=== PATIENT | male | born 1985 | race American Indian/Alaskan Native ===

== ENCOUNTER 2018-02-02 16:39 | Emergency (ER) | payer SELFPAY ==
[2018-02-02] MEDS ORDERED: ASPIRIN PO ONE (16:57)
[2018-02-02 16:58] VITALS: BP 130/79
[2018-02-02 17:22] LABS: Eosinophils # (Auto) 0.2 K/mm3 (0.0-0.4); Eosinophils % (Auto) 3.9 % (0.0-4.3); Hematocrit 44.3 % (35.5-45.6); Hemoglobin 14.3 gm/dl (11.8-15.2); Lymphocytes # (Auto) 1.7 K/mm3 (1.2-5.4); Lymphocytes % (Auto) 38.3 % (13.4-35.0); Mean Corpuscular HGB Conc 32 % (32-34); Mean Corpuscular Hemoglobin 29 pg (28-32); Mean Corpuscular Volume 91 fl (84-94); Monocytes # (Auto) 0.5 K/mm3 (0.0-0.8); Monocytes % (Auto) 11.1 % (0.0-7.3); Platelet Count 225 K/mm3 (140-440); Red Blood Count 4.87 M/mm3 (3.65-5.03); Red Cell Distribution Width 13.8 % (13.2-15.2)
[2018-02-02 17:36] LABS: BUN/Creatinine Ratio 10; Blood Urea Nitrogen 13 mg/dL (9-20); Calcium 8.9 mg/dL (8.4-10.2); Hemolysis Index 9
== END 2018-02-02 20:13 | disposition left against medical advice (07) ==
LOC: ED 16:39
DX: R07.9 Chest pain, unspecified (principal); Z53.21 Procedure and treatment not carried out due to patient leaving prior to being seen by health care provider
CPT/HCPCS: 36415; 80048; 84484; 85025